=== PATIENT | female | born 1990 | race Hispanic/Latino ===

== ENCOUNTER 2017-02-10 19:27 | Emergency (ER) | payer SELFPAY ==
[2017-02-10 20:08] LABS: #Basophils 0.1 thou/uL (0.0-0.2); #Eosinphils 0.1 thou/uL (0.0-0.7); #Monocytes 0.9 thou/uL (0.11-0.59); #Neutrophils 10.5 thou/uL (1.40-6.50); %Eosinophils 0.5 % (0.0-10.0); %Lymphocytes 20.6 % (21.0-51.0); %Monocytes 6.3 % (0.0-10.0); Hematocrit 36.4 % (36.0-47.0); Mean Platelet Volume 8.8 fL (7.4-10.4); White Blood Cell (WBC) Count 14.7 thou/uL (4.8-10.8)
[2017-02-10 20:15] LABS: PTT 27.8 SEC (22.9-36.1); Prothrombin Time 13.4 SEC (12.0-14.7)
[2017-02-10 20:22] LABS: ALT (SGPT) 11 U/L (8-55); AST (SGOT) 11 U/L (5-34); Alkaline Phosphatase 63 U/L (40-150); Anion Gap 15 mmol/L (10-20); BUN (Urea Nitrogen) 7 mg/dL (7.0-18.7); Bilirubin, Total 0.2 mg/dL (0.2-1.2); CK (CPK) 43 U/L (29-168); Calc. Creatinine Clearance 0 mL/min (70-130); Calcium 9.1 mg/dL (7.8-10.44); Carbon Dioxide 18 mmol/L (22-29); Chloride 107 mmol/L (98-107); Estimated GFR-MDRD Greater than 90; Globulin 3.4 g/dL (2.4-3.5); Lipase 31 U/L (8-78); Magnesium 1.8 mg/dL (1.6-2.6); Protein, Total 6.9 g/dL (6.0-8.3)
[2017-02-10 20:26] LABS: Troponin I Less than 0.010 ng/mL (< 0.028)
--- NOTE | 2017-02-10 21:21 | RAD ---
PORTABLE AP CHEST X-RAY 02/10/17 HISTORY: Chest pain. Heart racing. COMPARISON: None available. FINDINGS: The cardiac silhouette and pulmonary vasculature are within normal limits for portable technique of the study. The lungs are clear. The osseous structures are intact. IMPRESSION: No acute cardiopulmonary process. POS: [facility]
[2017-02-10] MEDS ORDERED: Potassium Chloride 20 MEQ TAB ONE (21:26)
[2017-02-10] MEDS ORDERED: Potassium Chloride 20 MEQ in Premix Bag 1 BAG IVPB SCH (21:30)
[2017-02-10 23:04] LABS: Troponin I Less than 0.010 ng/mL (< 0.028)
== END 2017-02-11 00:10 | disposition home or self-care (01) ==
LOC: ERS 19:27
DX: O99.282 Endocrine, nutritional and metabolic diseases complicating pregnancy, second trimester (principal); E86.0 Dehydration; O99.89 Other specified diseases and conditions complicating pregnancy, childbirth and the puerperium; R00.2 Palpitations; Z3A.21 21 weeks gestation of pregnancy
CPT/HCPCS: 36415; 71010; 80053; 82533; 82553; 83690; 83735; 84443; 84484; 85025; 85610; 85730; 93005; 94760; 96361; 96365; 96366; J3480

== ENCOUNTER 2017-02-11 01:03 | Day surgery (SDC) | payer SELFPAY ==
[2017-02-11 01:57] VITALS: BMI 26.6
--- NOTE | 2017-02-11 02:14 | PDOC.LDHP ---
Labor and Delivery H&P Chief complaint: abdominal pain HPI: 26 yo at 20.5 weeks gestation presents with complaint of SOB and palpitations that resolved and then became abdominal pain. Symptoms onset earlier today and she was seen in the ED where ACS was ruled out. She denies vaginal bleeding or discharge. After further questioning she states that she believes that the shortness of breath is associated with difficulty swallowing and reflux which has been getting progressively worse over the past few weeks. The abdominal pain is described as lower abdominal pain without radiation. She does admit to about 1 week of increased urinary frequency and burning with urination. Current gestational age (weeks): 20 Due date: 06/26/17 Dating criteria: last menstrual period Grav: 3 Para: 2 OB History Details: Previous pregnancies resulted in uncomplicated Current complications: none Abnormal US findings: No Current medications: pre-ebnoi vitamins Previous surgical history: cholecystectomy Allergies/Adverse Reactions: Allergies Allergy/AdvReac Type Severity Reaction Status Date / Time shellfish derived Allergy Anaphylaxis Verified 02/11/17 01:51 - Physical Exam Vital signs reviewed and normal: yes General: NAD Heart: RRR Lungs: CTAB Abdomen: gravid Extremeties: no edema - OB Labs Blood type: unknown RH: unknown HIV: unknown RPR: unknown HEPSAg: unknown 1 hour GCT: unknown 3 hour GTT: unknown GBS: unknown Urine drug screen: not done - Assessment 26yo at 20.5. Bedside US shows heart rate in the 140s. Physical exam is normal other than slight suprapubic tenderness. - Plan -: Order UA for evaluation of possible UTI, treat w/out patient abx if indicated. Follow up with Dr Kraus outpatient.
[2017-02-11 03:14] LABS: Bilirubin Negative (Negative); Blood, Urine Negative (Negative); Glucose, Urine (Dipstick) Negative (Negative); Ketone, Urine Negative (Negative); Nitrite Negative (Negative); Protein, Urine (Dipstick) Negative (Neg-Trace); Urobilinogen 0.2 mg/dL (0.2-1.0)
--- NOTE | 2017-02-11 04:35 | PRG ---
DATE OF SERVICE: 02/11/2017 TIME OF DICTATION: 0232 TIME OF EVALUATION: Roughly 0215. LOCATION: Labor and Delivery triage. REASON FOR EVALUATION: Suspected pelvic pressure and chest pain. The patient was first evaluated i n the emergency department. This is a patient of Dr. Kraus at [facility]. HISTORY OF PRESENT ILLNESS: In brief, this is a patient who was first evaluated by the Emergency Ro om due to \\\\"chest pain\\\\" during . She was also evaluated by Dr. Stoen Lafleur D.O. who i s a resident habilitative interventionist. In brief, Ms. Jarvis is a 26-year-old G3, P2 at roughly 20 gestational weeks who presents with shortness of breath and palpitations. She was evaluated in the ER where she was ruled out for an acute cardiac event. She denies vaginal bleeding or discharge. After further ques tioning, she states that she believes that her shortness of breath was actually part of the reflux ( GERD) which she has had over the last several weeks. She also states some suprapubic discomfort and increased urinary frequency. Her due date is 06/26/2017. She is a 3, para 2. REVIEW OF SYSTEMS: Complete review of systems was done and is otherwise negative unless specified i n the HPI. PAST SURGICAL HISTORY: Significant for a cholecystectomy. ALLERGIES: SHELLFISH. OB HISTORY: She has had prior uncomplicated normal spontaneous vaginal births. PHYSICAL EXAMINATION: VITAL SIGNS: She is afebrile and normotensive. ABDOMEN: Abdomen is soft and nontender. Grossly there is no evidence of vaginal bleeding or ruptur e of membranes. Ultrasound was performed to confirm heart tones. heart tones are within normal limits a t approximately 140s. There is no evidence of costovertebral angle tenderness. Interventions order ed a urinalysis has been collected and is currently pending. ASSESSMENT: This is a patient at mid with no evidence of acute maternal or complica tion with symptoms compatible with a urinary tract infection. PLAN: 1. The patient has been evaluated by the ER as well. 2. No evidence of labor. 3. No evidence of vaginal bleeding. 4. UA pending. 5. If UA confirms presence of a UTI, we will treat as an outpatient. 6. The patient is instructed to keep her follow up with Dr. Kraus. 7. I discussed the case with Dr. Stone Lafleur who was the first to evaluate the patient. 8. The patient was seen and evaluated by faculty. 9. No acute complications at this time.
== END 2017-02-11 03:42 | disposition home or self-care (01) ==
LOC: L&D/OP 01:03
PROVIDERS: ATTEND Obstetrics & Gynecology
DX: O99.89 Other specified diseases and conditions complicating pregnancy, childbirth and the puerperium (principal); R10.30 Lower abdominal pain, unspecified; R07.9 Chest pain, unspecified; K21.9 Gastro-esophageal reflux disease without esophagitis; Z90.49 Acquired absence of other specified parts of digestive tract; Z3A.20 20 weeks gestation of pregnancy; Z91.013 Allergy to seafood; Z79.899 Other long term (current) drug therapy
CPT/HCPCS: 76815; 81003

== ENCOUNTER 2017-05-13 00:45 | Day surgery (SDC) | payer OTHER ==
[2017-05-13 01:12] VITALS: BP 117/63; TEMP 98; BMI 27.8
[2017-05-13] MEDS ORDERED: Lactated Ringer's 1,000 ML IV SCH ×2 (01:30→02:30)
[2017-05-13 01:47] LABS: Bilirubin Negative (Negative); Blood, Urine Negative (Negative); Glucose, Urine (Dipstick) Negative (Negative); Ketone, Urine Negative (Negative); Nitrite Negative (Negative); Protein, Urine (Dipstick) Negative (Neg-Trace); Urobilinogen 0.2 mg/dL (0.2-1.0)
[2017-05-13 01:49] LABS: Bacteria/HPF None Seen HPF (None Seen); Hyaline Casts/LPF 0-3 HYALINE CAST LPF (0-3 Hyaline); RBC/HPF None Seen HPF (0-3); Squamous Epithelial 0-3 HPF (0-3); WBC/HPF 0-3 HPF (0-3)
[2017-05-13] MEDS ORDERED: NIFEdipine 10 MG CAP PO PRN (02:02)
[2017-05-13 02:11] LABS: Amphetamine Not Detected (NotDetected); Methadone Not Detected (NotDetected); Methamphetamine Not Detected (NotDetected)
[2017-05-13] MEDS ORDERED: NIFEdipine 10 MG CAP PO SCH ×2 (02:15→02:45)
--- NOTE | 2017-05-13 07:14 | HP ---
DATE OF SERVICE: 05/13/2017 TIME OF SERVICE: 06:30 PRESENTING COMPLAINT: Contractions at 33-34 weeks gestation. HISTORY OF PRESENT ILLNESS: Ms. Jarvis is a 27-year-old 3, para [address] Mian Kraus at [facility]. She reports contractions for the last 3-4 hours before presentation at approx imately 0100. She denies rupture of membranes. She reports an active fetus. She has no history of labor in the past. Antepartum record is not available on the unit. OB AND CONTENT DEVELOPMENT MANAGER HISTORY: Antepartum labs are not available. Denies history of STDs or UTI. PAST MEDICAL HISTORY: Anemia. PAST SURGICAL HISTORY: Cholecystectomy. ALLERGIES: Denies. MEDICATIONS: vitamins. SOCIAL HISTORY: Denies tobacco, alcohol, IV drug abuse. FAMILY HISTORY: Noncontributory. REVIEW OF SYSTEMS: Noncontributory. PHYSICAL EXAMINATION: GENERAL: female in moderate distress approximately every 3-5 minutes. VITAL SIGNS: Temperature 98.6, respirations 18, blood pressure 110/72. HEENT: Within normal limits. LUNGS: Clear to auscultation bilaterally. HEART: Regular rhythm. ABDOMEN: Has palpable contractions approximately every 5 minutes. PELVIC: Vulva without lesions. Vagina without discharge. Cervical exam by nurse is 2, 30% effaced and -3 station, posterior moderate consistency with the cervix, cephalic presentation. EXTREMITIES: Without clubbing, cyanosis or edema. LABORATORY STUDIES: Cath UA and urine drug screen were all within normal limits. Kb stain was negat yecenia. fibronectin was obtained prior to her initial cervical exam and this was negative. HEART RATE TRACING: heart rate tracing was category 1 throughout. There were positive a ccelerations with decelerations only noted once when the patient rolled over on her side and these re solved spontaneously and did not repeat more than 4 hours of monitoring. The patient was initially n oted to be having contractions every 5 minutes. IV hydration reduces down to approximately every 7-1 0. The patient received one dose of Procardia per protocol and contractions decreased to approximate ly every 10-15 minutes. The patient's blood pressure dropped enough with her Procardia that we were unable to give subsequent doses; however, after watching the patient for approximately 4 hours, she d evelops to where she only had occasional uterine irritability to approximately every 20 minutes. Cer vical exam was not repeated. IMPRESSION: contractions without cervical change with a negative fibronectin resolved with IV fluids and Procardia. PLAN: ER precautions, discharge home. The patient to have close followup with Dr. Mian Kraus. Gi delma that the contractions resolved and the patient's fibronectin was negative, decision was mad e not to administer betamethasone for lung maturity. If the patient returns, we woul d likely go ahead and do this.
== END 2017-05-13 07:25 | disposition home or self-care (01) ==
LOC: L&D/OP 00:45
PROVIDERS: ATTEND Family Medicine
DX: O47.03 False labor before 37 completed weeks of gestation, third trimester (principal); Z3A.33 33 weeks gestation of pregnancy; Z90.49 Acquired absence of other specified parts of digestive tract; Z86.2 Personal history of diseases of the blood and blood-forming organs and certain disorders involving the immune mechanism; Z91.013 Allergy to seafood; Z79.899 Other long term (current) drug therapy
CPT/HCPCS: 51701; 80306; 81001; 82731; 85460; 87086; 96360; 96361; 99285

== ENCOUNTER 2023-01-15 17:30 | Emergency (ER) | payer SELFPAY ==
[2023-01-15 18:10] LABS: #Basophils 0.1 thou/uL (0.0-0.2); #Eosinphils 0.1 thou/uL (0.0-0.7); #Monocytes 0.4 thou/uL (0.11-0.59); #Neutrophils 4.9 thou/uL (1.40-6.50); %Basophils 0.6 % (0.0-1.0); %Eosinophils 1.3 % (0.0-10.0); %Lymphocytes 30.4 % (21.0-51.0); %Neutrophils 62.3 % (42.0-75.0); Hematocrit 41.5 % (36.0-47.0); Mean Corpuscular HGB CONC 33.7 g/dL (32.0-36.0); Mean Corpuscular Hemoglobin 28.7 pg (27.0-31.0); Mean Corpuscular Volume 85.2 fl (78.0-98.0); Mean Platelet Volume 11.6 fL (7.4-10.4); Platelet Count 240 10x3/uL (130-400); Red Blood Cell (RBC) Count 4.87 mill/uL (4.20-5.40); White Blood Cell (WBC) Count 7.9 10x3/uL (4.8-10.8)
[2023-01-15 18:13] LABS: BHCG - Serum Negative (NEGATIVE); Pregs Control Background? CLEAR/WHITE (CLR/WHITE); Pregs Control Bar Appear? YES (CONTROL BAR)
[2023-01-15 18:36] LABS: Troponin I Less than 0.010 ng/mL (< 0.028)
[2023-01-15 18:45] LABS: Albumin 4.4 g/dL (3.5-5.0)
[2023-01-15 18:46] LABS: Chloride 108 mmol/L (98-107); Sodium 140 mmol/L (136-145)
[2023-01-15 18:47] LABS: Calcium 9.4 mg/dL (7.8-10.44)
[2023-01-15 18:48] LABS: Globulin 3.2 g/dL (2.4-3.5); Glucose 92 mg/dL (70-105); Protein, Total 7.6 g/dL (6.0-8.3)
[2023-01-15 18:49] LABS: Anion Gap 14 mmol/L (10-20); Carbon Dioxide 22 mmol/L (22-29)
[2023-01-15 18:50] LABS: Alkaline Phosphatase 76 U/L (40-110); Bilirubin, Total 0.2 mg/dL (0.2-1.2)
[2023-01-15 18:51] LABS: Calc. Creatinine Clearance 0 mL/min (70-130); Estimated GFR 101
[2023-01-15 18:52] LABS: BUN (Urea Nitrogen) 15 mg/dL (7.0-18.7)
[2023-01-15 18:53] LABS: ALT (SGPT) 25 U/L (8-55); AST (SGOT) 15 U/L (5-34)
== END 2023-01-15 19:40 | disposition home or self-care (01) ==
LOC: ERS 17:30
DX: J06.9 Acute upper respiratory infection, unspecified (principal); Z20.822 Contact with and (suspected) exposure to COVID-19
CPT/HCPCS: 71045; 80053; 84484; 84703; 85025; 87635; 93005